=== PATIENT | male | born 2000 | race Two or more races ===

== ENCOUNTER 2024-09-12 09:20 | Emergency (ER) | payer MEDICAID, OTHER ==
[~2024-09-12] VITALS: Ht 180.3 cm; Wt 131.7 kg
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
[2024-09-12] MEDS: ACETAMINOPHEN 500 MG TAB or CAP PO ONE (10:38)
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
[2024-09-12 10:54] VITALS: BP 124/54; PULSE 81; RESP 18; O2SAT 98
[2024-09-12] MEDS: IBUPROFEN 800 MG TAB PO ONE (11:03)
[2024-09-12 11:12] LABS: Basophils # (auto) 0 10 ^3/uL (0-0.2); Basophils % (auto) 0.1 % (0.0-2.0); Eosinophils # (auto) 0.1 10 ^3/uL (0-0.8); Eosinophils % (auto) 0.4 % (0.0-7.0); Hemoglobin 13.6 g/dL (13.5-17.5); Lymphocytes # (auto) 2.8 10 ^3/uL (0.4-5.4); Lymphocytes % (auto) 16.5 % (10.0-50.0); Mean Corpuscular Hgb Conc. 32.5 g/dL (32.0-36.0); Mean Corpuscular Volume 83.3 fL (80.0-100.0); Monocytes # (auto) 1.2 10 ^3/uL (0-1.3); Monocytes % (auto) 7.3 % (0.0-12.0); Neutrophils # (auto) 12.8 10 ^3/uL (1.6-8.6); Neutrophils % (auto) 75.7 % (37.0-80.0); Nucleated Red Blood Cells % 0.1 %; Platelet Count (auto) 446 10^3/uL (140-450); Red Blood Cells 5.04 10^6/uL (4.5-5.90); Red Cell Distribution Width 14.5 % (11.8-14.3); White Blood Cell 16.9 10^3/uL (4.4-10.8)
[2024-09-12 11:33] LABS: Alkaline Phosphatase 87 U/L (46-116); Anion Gap 11 (5-15); BUN/Creatinine Ratio 13.8 (10.0-20.0); Bilirubin, Total 0.6 mg/dL (0.2-1.0); Blood Urea Nitrogen 15 mg/dL (9-23); Calcium 10.4 mg/dL (8.7-10.4); Carbon Dioxide 24 mmol/L (20-31); Chloride 103 mmol/L (98-107); Potassium 4.1 mmol/L (3.5-5.1); Sodium 138 mmol/L (136-145)
[2024-09-12 11:40] LABS: Glucose 158 mg/dL (74-106)
[2024-09-12 11:41] LABS: Alanine Aminotransferase 57 U/L (7-40); Albumin 5.3 g/dL (3.2-4.8); Aspartate Aminotransferase 57 U/L (13-40)
== END 2024-09-12 13:44 | disposition home or self-care (01) ==
LOC: ER 09:20
DX: S82.55XA Nondisplaced fracture of medial malleolus of left tibia, initial encounter for closed fracture (principal); R55 Syncope and collapse; G43.909 Migraine, unspecified, not intractable, without status migrainosus; V89.2XXA Person injured in unspecified motor-vehicle accident, traffic, initial encounter; Y93.I9 Activity, other involving external motion; Y92.89 Other specified places as the place of occurrence of the external cause; Y99.8 Other external cause status
CPT/HCPCS: 29515; 36415; 70450; 71046; 73502; 73590; 73610; 80053; 82962; 85025